=== PATIENT | female | born 1940 | race African-American/Black ===

== ENCOUNTER 2018-10-16 20:22 | Emergency (ER) | payer OTHER, MEDICAID ==
[~2018-10-16] VITALS: Ht 170.2 cm; Wt 109.0 kg
[~2018-10-16 20:22] MED LIST: ASPI-1159 PO; CARV25TA47 PO; FLUT16SP15 BOTHNSTRLS; FURO40TA5 PO; LOSA50TA20 PO; ONDA8TAB6 PO; TRAM50TA3 PO; TRESIBA SUBCUT
[2018-10-17] MEDS ORDERED: NITROGLYCERIN 0.4MG TABLET SL SL PRN (00:30)
[2018-10-17 01:49] LABS: BASOPHILS % 1.4 % (0.0-2.0); HEMATOCRIT. 40.2 % (36.0-48.0); HEMOGLOBIN. 13.6 g/dL (12.0-16.0); LYMPHOCYTES % 21.1 % (20.0-50.0); MEAN CORPUSCULAR HEMOGLOBIN 30.7 pg (28.0-32.0); MEAN CORPUSCULAR VOLUME 90.7 fL (81.0-99.0); MEAN PLATELET VOLUME 9.7 fl (7.4-10.4); MONOCYTES % 9.2 % (2.0-8.0); NEUTROPHILS % 62.3 % (40.0-76.0); PLATELET 241 x1000/uL (130-400); RED BLOOD CELL COUNT 4.44 mill/uL (4.2-5.4); RED CELL DISTRIBUTION WIDTH 13.8 % (11.6-14.6)
[2018-10-17] MEDS ORDERED: HYDRALAZINE 20MG/ML VIAL IV ONE (02:00)
[2018-10-17] MEDS ORDERED: FUROSEMIDE 40MG/4ML VIAL IVP NR (02:15)
[2018-10-17] MEDS ORDERED: ASPIRIN 325MG EC TABLET PO NR (02:15)
[2018-10-17 02:39] LABS: CHLORIDE 107 mEq/L (98-107)
[2018-10-17 04:17] VITALS: BP 151/67
== END 2018-10-17 04:37 | disposition short-term general hospital (02) ==
LOC: ER 20:22 → CANBEDREQ 10-17 08:56
DX: M79.602 Pain in left arm (principal); R07.89 Other chest pain; I11.0 Hypertensive heart disease with heart failure; I50.9 Heart failure, unspecified; E11.9 Type 2 diabetes mellitus without complications; Z90.710 Acquired absence of both cervix and uterus; Z90.10 Acquired absence of unspecified breast and nipple; Z79.82 Long term (current) use of aspirin; Z79.899 Other long term (current) drug therapy; Z88.5 Allergy status to narcotic agent; Z88.0 Allergy status to penicillin; Z88.8 Allergy status to other drugs, medicaments and biological substances
CPT/HCPCS: 36415; 71045; 80053; 82962; 83880; 84484; 85025; 93005; 96374; 96375; 99285; J0360; J1940